=== PATIENT | female | born 1940 | race Caucasian/White ===

== ENCOUNTER 2024-04-13 15:13 | Outpatient (POV) | payer MEDICARE, OTHER, SELFPAY ==
--- OUTSIDE RECORDS SUMMARY | 2024-04-13 15:16 | XMS_ITS | Continuity of Care Document ---
Author Name Unknown Address [address], [place] [id number] Organization [facility] Phone Care Team Providers Care Taker Off Braker Machine Name Role Phone MENDOZA COMBS Primary Attending MENDOZA COMBS Admitting KARTHIK HANSEN Primary Care MENDOZA COMBS Unavailable ALLERGIES AND ADVERSE REACTIONS ALLERGIES AND ADVERSE REACTIONS Code System Allergy Substance Adverse Reaction Date Reaction (Severity) Comment Status Reported By Updated By [id number] RXNorm Penicillin Adverse reaction to substance na active [id number] on March 28, 2022 3:49:[address] [facility] FAMILY HISTORY RELATION: Father Status: Cause of : Small cell carcinoma of lung Age at : 73 SNOMED-CT Diagnosis Age At Onset [id number] Small cell carcinoma of lung RELATION: Mother Status: Cause of : Alzheimer's disease Age at : 80 SNOMED-CT Diagnosis Age At Onset [id number] Alzheimer's disease RELATION: Brother Status: Cause of : Meningitis Age at : 60's SNOMED-CT Diagnosis Age At Onset Information not available RELATION: Brother Status: Cause of : Irregular heart rate Age at : 80's SNOMED-CT Diagnosis Age At Onset Information not available RESULTS Patient: ANMOL Bonner Date of : 1940 LABORATORY RESULTS ORDER 200: CALCIUM TOTAL (LO INC: [id number]) ORDER DATE: January 28, 2024 6:44:00 PM [place] Specimen Source: Serum/Plasm a Specimen Type: Acellular blo od (serum or plasma) specimen PERFORMING LAB: [facility] [address] [facility] [id number] Result Comment: Final Result Date: January 28, 2024 7:19:00 PM UT (TECH: HC) LOINC TEST FLAG [place] [id number] Calcium [Mass/volume] in Serum or Plasma N 9.2 mg/dL 8.5 mg/dL - 10.1 mg/dL January 28, 2024 7:19:[address] [facility] (TECH: HC) LABORATORY NARRATIVE RESULTS Information is not available RADIOLOGY RESULTS Information is not available PATHOLOGY NARRATIVE RESULTS Information is not available MICROBIOLOGY RESULTS No Micro Labs/Results Exist for Patient BLOOD ADMIN RESULTS Information is not available MEDICATIONS HOME MEDICATIONS Status RXNORM NDC Medication Dose Route Frequency Dates Comments Reported By Updated By Drug Treatment Unknown DISCHARGE MEDICATIONS Status RXNORM NDC Medication Dose Route Frequency Dates Comments Physician Updated By No Discharge Medication Info rmation Available INPATIENT MEDICATIONS Status RXNORM NDC Medication Dose Route Frequency Rat e Quantity Dates Comments Physician Updated By No Inpatient Medication Info rmation Available SOCIAL HISTORY SOCIAL HISTORY SNOMED-CT Social History Element Description Effective Dates Offered Cessation Comment UpdatedBy [id number] Historical Tobacco smoking status Never Smoked Not Applicable [id number] on March 28, 2022 2:35:[address] [facility] [id number] Historical Tobacco smoking status Former Smoker End: August 19, 1980 4:00:[address] [facility] No Quit 50 years ago [id number] on August 19, 2018 2:23:[address] [facility] SOCIAL HISTORY - Gender Sex: Female SOCIAL HISTORY - Status : status i nformation is not available Intention in Next Year: intention information is not available SOCIAL HISTORY - Sexual Behavior Sexual Orientation Gender Identity SNOMED-CT Description SNO MED -CT Description Activity Level No of Partners Partner Type UpdatedBy Information is not available HEALTH CONCERNS Problems Concern Status Health Concern problem infor mation not available. Smoking Status Status Years Used Consumed packs p er day Health Concern smoking histo ry information not available. Family History Concern Status Health Concern family histor y information not available. ENCOUNTERS ENCOUNTER INFORMATION Reason for Visit M81.0 Admission January 28, 2024 6:30:[address] [address] Discharge January 28, 2024 6:30:[address] [facility] DI SCHARGED TO HOME OR SELF CARE ENCOUNTER DIAGNOSES Notes information is not mirta ilable. Code System Diagnosis Onset Date Diagnosis information is not available. 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 January 28, 2024 6:30:00 PM [place] [id number] on January 28, 2024 6:31:[address] [facility] LAURYN Kamara APRN Attending normal January 28, 2024 4:00:[address] [facility] January 28, 2024 6:30:00 PM UT [id number] on January 28, 2024 6:31:[address] [facility] LAURYN Kamara APRN Admitting normal January 28, 2024 4:00:[address] [facility] January 28, 2024 6:30:00 PM [place] [id number] on January 28, 2024 6:31:[address] [facility] JADE ANGELES MD PHY PCP normal January 28, 2024 4:00:[address] [facility] January 28, 2024 6:30:00 PM UT [id number] on January 28, 2024 6:31:[address] [facility]
--- OUTSIDE RECORDS SUMMARY | 2024-04-13 15:16 | XMS_ITS | Continuity of Care Document ---
Author Name Unknown Address [address] [place] [id number] Organization [facility] Phone Care Team Providers Care Assembler 1St Shift Name Role Phone JALIL FROST Unavailable JALIL FROST Admitting KARTHIK HANSEN Primary Care JALIL FROST Primary Attending ALLERGIES AND ADVERSE REACTIONS ALLERGIES AND ADVERSE REACTIONS Code System Allergy Substance Adverse Reaction Date Reaction (Severity) Comment Status Reported By Updated By [id number] RXNorm Penicillin Adverse reaction to substance na active [id number] on March 28, 2022 3:49:36 AM [facility] FAMILY HISTORY RELATION: Father Status: Cause of : Small cell carcinoma of lung Age at : 73 SNOMED-CT Diagnosis Age At Onset [id number] Small cell carcinoma of lung RELATION: Mother Status: Cause of : Alzheimer's disease Age at : 80 SNOMED-CT Diagnosis Age At Onset [id number] Alzheimer's disease RELATION: Brother Status: Cause of : Meningitis Age at : 60's SNOMED-CT Diagnosis Age At Onset Information not available RELATION: Brother Status: Cause of : Irregular heart rate Age at : 80's SNOMED-CT Diagnosis Age At Onset Information not available RESULTS Patient: ANMOL Bonner Date of : 1940 LABORATORY RESULTS ORDER 200: VITAMIN D3 25-OH (LOINC: 1989-3) ORDER DATE: November 27, 2023 7:37:00 PM [facility] Specimen Source: Serum/Plasm a PERFORMING LAB: [address] [id number] Result Comment: November 28, 2023 3:10:00 PM [facility] Vitamin D deficiency has been defined by the [place] of Result Comment: November 28, 2023 3:10:00 PM [facility] Medicine and an Endocrine Society practice guideline as a Result Comment: November 28, 2023 3:10:00 PM UTC level of serum 25-OH vitamin D less than 20 ng/mL (1,2). Result Comment: November 28, 2023 3:10:00 PM UTC The Endocrine Society went on to further define vitamin D Result Comment: November 28, 2023 3:10:00 PM UTC insufficiency as a level between 21 and 29 ng/mL (2). Result Comment: November 28, 2023 3:10:00 PM UTC 1. IOM ([place] of Medicine). 2010. Dietary reference Result Comment: November 28, 2023 3:10:00 PM UTC intakes for calcium and D. [facility]: The Result Comment: November 28, 2023 3:10:00 PM UTC [employer]. Result Comment: November 28, 2023 3:10:00 PM UTC 2. Yumiko EMERY, Rangel SU, David MADDOX, et al. Result Comment: November 28, 2023 3:10:00 PM UTC Evaluation, treatment, and prevention of vitamin D Result Comment: November 28, 2023 3:10:00 PM UTC deficiency: an Endocrine Society clinical practice Result Comment: November 28, 2023 3:10:00 PM UTC guideline. JCEM. 2010; 96):1911-30. Result Comment: November 28, 2023 3:10:00 PM UTC Performed at: [facility] Result Comment: November 28, 2023 3:10:00 PM UTC [address], [place] [id number] Result Comment: November 28, 2023 3:10:00 PM UTC Underground Repairer: Eduin Flores PhD, Phone: [phone] Result Comment: November 28, 2023 3:10:00 PM UTC Final Result Date: November 28, 2023 7:37:00 PM UTC (TECH: LAB) LOINC TEST FLAG RESULT REFERENCE RANGE UPDA BRAYAN BY 1988- Calcidiol [Mass/volume] in Serum or Plasma N 58.3 ng/mL 30.0 ng/mL - 100.0 ng/mL November 28, 2023 7:37:00 PM UTC (TECH: LAB) LABORATORY NARRATIVE RESULTS Information is not available RADIOLOGY RESULTS Information is not available PATHOLOGY NARRATIVE RESULTS Information is not available MICROBIOLOGY RESULTS No Micro Labs/Results Exist for Patient BLOOD ADMIN RESULTS Information is not available MEDICATIONS HOME MEDICATIONS Status RXNORM Medication Dose Route Frequency Dates Comments R eported By Updated By Drug Treatment Unknown DISCHARGE MEDICATIONS Status RXNORM Medication Dose Route Frequency Dates Comments Physic bay Updated By No Discharge Medication Info rmation Available INPATIENT MEDICATIONS Status RXNORM Medication Dose Route Frequency Rate Quantity Dates Comments Physician Updated By No Inpatient Medication Info rmation Available SOCIAL HISTORY SOCIAL HISTORY SNOMED-CT Social History Element Description Effective Dates Offered Cessation Comment UpdatedBy [id number] Historical Tobacco smoking status Never Smoked Not Applicable [id number] on March 28, 2022 2:35:51 PM [facility] [id number] Historical Tobacco smoking status Former Smoker End: August 19, 1980 4:00:00 AM [facility] No Quit 50 years ago [id number] on August 19, 2018 2:23:48 PM [facility] SOCIAL HISTORY - Gender Sex: Female SOCIAL HISTORY - Sexual Behavior Sexual Orientation [...] available. ENCOUNTERS ENCOUNTER INFORMATION Reason for Visit M81.0, R53.83 Admission November 27, 2023 7:23:[address] [id number] Discharge November 27, 2023 7:23:00 PM [facility] DISCHARGED TO HOME OR SELF CARE ENCOUNTER DIAGNOSES Notes information is not mirta ilable. Code System Diagnosis Onset Date Diagnosis information is not available. 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 [id number] on November 30, 2023 3:30:48 PM [facility] R53.83 ICD10 OTHER FATIGUE [id number] on Nov 3:30:48 PM [facility] CARE TEAM Care Assembler 1St Shift Role JALIL FROST Referring JALIL FROST Admitting KARTHIK HANSEN Primary Care JALIL FROST Primary Attending CARE TEAM CARE financial planning assistant Role on Team Status Start Date End Date Update d By JADE ANGELES MD PHY PCP normal November 27, 2023 5:00:00 AM UT November 27, 2023 5:00:00 AM [place] [id number] on November 27, 2023 7:25:36 PM UTC MARGOT JIMENES Referring normal November 27 5:00:00 AM [facility] November 27, 2023 5:00:00 AM [facility] [id number] on November 27, 2023 7:25:36 PM UTC MARGOT JIMENES Attending normal November 27 5:00:00 AM [facility] November 27, 2023 5:00:00 AM [facility] [id number] on November 27, 2023 7:25:36 PM UT MARGOT JIMENES Admitting normal November 27 5:00:00 AM [facility] November 27, 2023 5:00:00 AM [facility] [id number] on November 27, 2023 7:25:36 PM [facility]
--- OUTSIDE RECORDS SUMMARY | 2024-04-13 15:16 | XMS_ITS | Continuity of Care Document ---
Author Name Unknown Organization [facility] Address [address] [place] [id number] Phone Care Team Providers Care Slitter And Rewinder Name Role Phone Namrata Moreira MD Unavailable Unavailable Allergies, Adverse Reactions, Alerts Substance Reaction Status Criticality ZOLPIDEM TARTRATE Active No Informa tion Penicillins Active No Information Medications Medication Instructions Dosage Effective Dates (start - stop) Status Comments Prolia 60 mg/mL subcutaneous syringe inject 1 milliliter by subcutaneous route every 6 months in the upper arm, upper thigh or abdomen 60 MG - Active Dx= M81.0 hydroxychloroquine 200 mg tablet Take one tablet bid - Active gabapentin 100 mg capsule One Capsule twice daily, can increase to 1 capsule tid. - Active budesonide DR - ER 3 mg capsule,delayed,extende d release take 2 capsule by oral route every day in the morning for up to 8 weeks 6 MG - Active tamsulosin 0.4 mg capsule take 1 capsule by oral route every day 1/2 hour following the same meal each day 0.4 MG - Active amlodipine 10 mg tablet take 1 tablet by oral route every day 10 MG - Active ZOLOFT (unknown strength) take 1 tablet by oral route every day Not Available - Active Eliquis 2.5 mg tablet take 1 tablet by oral route 2 times every day 2.5 MG - Active VITAMIN D3 (unknown strength) weekly Not Available - Active hydrocodone 10 mg-acetaminophen 325 mg tablet take 1 tablet by oral route every 4 - 6 hours as needed for pain 1.00 tablet - Active hydroxyzine HCl 50 mg tablet take 1 tablet by oral route every day 50 MG - Active Fish Oil 1,000 mg (120 mg-180 mg) capsule Takes qd - Active cyanocobalamin (vit B-12) 1,000 mcg/mL injection solution inject 1 milliliter by intramuscular route every month 1000 MCG - Active omeprazole 40 mg capsule,delayed release take 1 capsule by oral route every day before a meal 40 MG - Active losartan 50 mg tablet take 1 tablet by oral route every day 50 MG - Active alprazolam 0.5 mg tablet take 1 tablet once a day - Active temazepam 30 mg capsule take 1 capsule once a day - Active sotalol 80 mg tablet take 1 tablet once a day - Active glimepiride 2 mg tablet take 1 tablet by oral route every day 2 MG - Active fluticasone 50 mcg/actuation nasal spray,suspension inhale 1 spray by intranasal route every day in each nostril 50 MCG - Active Procedures Procedure Date DEXA Bone Density Study 1 + Sites Office Visit Level IV Injection,denosumab,1mg Therapeutic Prophylactic/Dx Injection Rivera Injection,denosumab,1mg Therapeutic Prophylactic/Dx Injection Rivera Office Visit Level II Injection,denosumab,1mg Therapeutic Prophylactic/Dx Injection Rivera Office Visit Level II Injection,denosumab,1mg Therapeutic Prophylactic/Dx Injection Rivera Office Visit Level IV DEXA Bone Density Study 1 + Sites Office Visit Level III Injection,denosumab,1mg Therapeutic Prophylactic/Dx Injection Rivera Brief Tech Communication Injection,denosumab,1mg Therapeutic Prophylactic/Dx Injection Rivera Office Visit Level IV Office Visit Level IV DEXA Bone Density Study 1 + Sites Office Visit Level IV Office Visit Level IV Office Visit Level IV Office Visit Level IV Advance Directives Directive Yes / No Effective Date File Name No Information Encounters Encounter Description Practice Location Reason(s) For Visit Diagnoses Date Provider Providers Copied on Encounter [facility] [address] [place] [address], [id number], tel:[phone] [facility] No Information 4 Harish Ott. [address] [place] [address], [id number]. tel:[phone] [facility] [address] [place] [address], [id number], [place] tel:[phone] [facility] No Information 3 Harish Ott. [address] [place] [address], [id number]. tel:[phone] Referring Provider: MD Kailey Leal, [address] [place] [address], [facility]. tel:[phone] Office Visit Level IV [facility] [address] [place] [address], [id number], [place] tel:[phone] [facility] Rheumatoid Arthritis (chief complaint) RAOsteoporos isRenal insufficienc yPain ManagementHi gh Risk Medication UseBody mass index (BMI) 28.0-28.9, adult Oct- 3 Jake Carrasco. [address] [place] [address], [place], [place], [id number], [place]. tel:[phone] Specialist: Alphonso Valadez, [address], [place], [address]. tel:[phone] ist: Sal Kwon, [address] [facility], [place], [address]. tel:[phone] ist: Solsi To, [address], [address]. tel:[phone] ist: Anthony Simon, [address], [place], [address]. tel:[phone] ng Provider: MD Kailey Leal, [facility] [place], [address]. tel:[phone] [facility] [address] [place] [address], [id number], tel:[phone] [facility] Age-related osteoporosis without current pathological fracture 3 Harish Ott. [address], [id number]. tel:[phone] Referring Provider: MD Kailey Leal, [facility] [place], [address]. tel:[phone] [facility] [address] [place] [address], [id number], tel:[phone] [facility] Age-related osteoporosis without current pathological fracture 2 Harish Ott. [address], [id number]. tel:[phone] Referring Provider: MD Kailey Leal, [facility] [place], [address]. tel:[phone] Office Visit Level II [facility] [address] [place] [address], [id number], [place] tel:[phone] [facility] Rheumatoid Arthritis (chief complaint) RALow back painRenal insufficienc yOsteoporosi Umair ManagementBo dy mass index (BMI) 29.0-29.9, adultHigh Risk Medication Use 2 Harish Ott. [address], [address], [id number]. tel:[phone] Referring Provider: MD Kailey Leal, [facility] [place], [address]. tel:[phone] [facility] [address] [place] [address], [id number], [place] tel:[phone] [facility] Age-related osteoporosis without current pathological fracture 1 Harish Ott. [address], [id number]. tel:[phone] Referring Provider: MD Kailey Leal, [facility] [place], [address]. tel:[phone] Office Visit Level II [facility] [address] [place] [address], [id number], [place] tel:[phone] [facility] Rheumatoid Arthritis (chief complaint) RALow back painOsteopor osisRenal insufficienc yPain ManagementBo dy mass index (BMI) 29.0-29.9, adultHigh Risk Medication Use 1 Jake Carrasco. [address] [place] [address], [id number], [place]. tel:[phone] Referring Provider: MD Kailey Leal, [facility] [place], [address]. tel:[phone] [facility] [address] [place] [address], [id number], [place] tel:[phone] [facility] Age-related osteoporosis without current pathological fracture 1 Harish Ott. [address], [id number]. tel:[phone] Referring Provider: MD Kailey Leal, [facility] [place], [address]. tel:[phone] Office Visit Level IV [facility] [address] [place] [address], [id number], [place] tel:[phone] [facility] Rheumatoid Arthritis (chief complaint) RALow back painOsteopor osisRenal insufficienc yPain ManagementBo dy mass index (BMI) 29.0-29.9, adultHigh Risk Medication Use 1 Harish Ott. [address], [address], [id number]. tel:[phone] Referring Provider: MD Kailey Leal, [facility] [place], [address]. tel:[phone] Office Visit Level III [facility] [address] [place] [address], [id number], tel:[phone] [facility]. Rheumatoid Arthritis (chief complaint) RALow back painOsteopor osisRenal insufficienc yPain ManagementBo dy mass index (BMI) 29.0-29.9, adultHigh Risk Medication Use 1 Harish Ott. [address] [employer], [address], [id number]. tel:[phone] Referring Provider: MD Kailey Leal, [facility] [place], [address]. tel:[phone] [facility], [address] [place] [address], [id number], [place] tel:[phone] [facility]. Rheumatoid Arthritis (chief complaint) Pain ManagementAN TICOAGULATED ON COUMADINRALo w back painOsteopor osisRenal insufficienc yBody mass index (BMI) 29.0-29.9, adultHigh Risk Medication Use 0 Harish Ott. [address], [address], [id number]. tel:[phone] Referring Provider: MD Kailey Leal, [facility] [place], [address]. tel:[phone] [facility] [address] [place] [address], [id number], [place] tel:[phone] [facility] Age-related osteoporosis w/o current pathological fracture 0 Harish Ott. [address], [id number]. tel:[phone] Referring Provider: MD Kailey Leal, [facility] [place], [address]. tel:[phone] [facility] [address] [place] [address], [id number], [place] tel:[phone] [facility] Rheumatoid Arthritis (chief complaint) RALow back painOsteopor osisRenal insufficienc yBody mass index (BMI) 29.0-29.9, adultHigh Risk Medication UsePain ManagementAN TICOAGULATED ON COUMADIN 0 Harish Ott. [address], [place] [address], [place], [place], [id number]. tel:[phone] Referring Provider: MD Kailey Leal, [address] [place], [address]. tel:[phone] [facility] [address] [place] [address], [id number], [place] tel:[phone] [facility] No Information 0 Zenaida Russell. [address], [id number]. tel:[phone] [facility] [address] [place] [address], [id number], [place] tel:[phone] [facility] Age-related osteoporosis w/o current pathological fracture 201 9 Leeann Wyatt. [address], [place] [address], [place], [address]. tel:[phone] Referring Provider: MD Kailey Leal, [address] [place], [address]. tel:[phone] Office Visit Level IV [facility] [address] [address], [place], [place], [id number], [place] tel:[phone] [facility]. Rheumatoid Arthritis (chief complaint) RALow back painOsteopor osisRenal insufficienc yHigh Risk Medication UseBody mass index (BMI) 29.0-29.9, adult Aug- 9 Harish Ott. [address], [address], [place], [place], [id number]. tel:[phone] Specialist: Gabriela Rogers [address], [place], [address]. tel:[phone] ist: Sal Kwon, [address] [place], [address]. tel:[phone] ist: Solis To, [address], [address]. tel:[phone] ist: Anthony Simon, [address], [place], [address]. tel:[phone] Provider: MD Kailey Leal, [address] [place], [address]. tel:[phone] Office Visit Level IV [facility] [address] [address], [place], [place], [id number], [place] tel:[phone] [facility]. Rheumatoid Arthritis (chief complaint) RALow back painRenal insufficienc yLong term (current) use of systemic steroidsHigh Risk Medication UseBody mass index (BMI) 32.0-32.9, adultLack of energyOsteop orosis Jan- 9 Harish Ott. [address], [address], [place], [place], [id number]. tel:[phone] Specialist: Gabriela Rogers [address], [place], [address]. tel:[phone] ist: Sal Kwon, [address], [place], [address]. tel:[phone] ist: Solis Portillox, [address], [address]. tel:[phone] ist: Gabriela Berg [address], [place], [address]. tel:[phone] ng Provider: MD Kailey Leal, [facility] [place], [address]. tel:[phone] Office Visit Level IV [facility], [address] [place] [address], [place], [id number], tel:[phone] [facility] Rheumatoid Arthritis (chief complaint) RALow back painOsteopen iaRenal insufficienc yBody mass index (BMI) 27.0-27.9, adultLong term (current) use of systemic steroidsHigh Risk Medication Use Oct-0 1-201 8 Harish Ott. [address] [facility], [place], [place], [id number]. tel:[phone] Specialist: Gabriela Rogers [address], [place], [address]. tel:[phone] ist: Sal Alfredoadalid, [address] [facility], [place], [address]. tel:[phone] ist: Solis Portillox, [address], [address]. tel:[phone] ist: Gabriela Berg [address], [place], [address]. tel:[phone] ng Provider: MD Kailey Leal, [address] [place], [address]. tel:[phone] Office Visit Level IV [facility]., [address] [address], [place], [place], [id number], [place] tel:[phone] [facility]. Rheumatoid Arthritis (chief complaint) RALow back painOsteopen iaRenal insufficienc yHigh Risk Medication UseBody mass index (BMI) 27.0-27.9, adultLong term (current) use of systemic steroids 8 Harish Ott. [address], [address], [place], [place], [id number]. tel:[phone] Specialist: Gabriela Rogers [address], [place], [address]. tel:[phone] ist: Sal Kwon, [address] [place], [address]. tel:[phone] ist: Solis To, [address], [address]. tel:[phone] ist: Anthony Simon, [address], [place], [address]. tel:[phone] ng Provider: MD Kailey Leal, [facility] [place], [address]. tel:[phone] Office Visit Level IV [facility], [address] [place] [address], [place], [place], [id number], [place] tel:[phone] [facility]. Rheumatoid Arthritis (chief complaint) RAOsteopenia Renal insufficienc yHigh Risk Medication UseLow back pain 7 Harish Ott. [address], [address], [place], [place], [id number]. tel:[phone] Specialist: Gabriela Rogers [address], [place], [address]. tel:[phone] melida Provider: MD Kailey Leal, [address] [place], [address]. tel:[phone] Office Visit Level IV [facility], [address] [facility] [address], [place], [place], [id number], tel:[phone] [facility] Lack of energyCrypto coccosisBron chiectasisIn somniaPacema kerNeck PainThrombos isDiabetic ComaA fibEssential (hemorrhagic ) thrombocythe Trinity/O: CVA (CEREBROVASC ULAR ACCIDENT)BRIAN levated Liver Function TestsDepress ionIrritable bowel syndromeOste openiaPain in left hipLBP Radiating to Right LegRARenal insufficienc y 7 Harish Ott. 330 [facility], [address], [place], [place], [id number]. tel:[phone] Referring Provider: MD Kailey Leal, [address] [facility], [place], [address]. tel:[phone] Family History Family Member Type Diagnosis Age At Onset Brother Problem (finding) alzheimer's disease Payers Payer name Insurance type Covered libertarian ID Authoriza tion(s) Medicare [id number] MB [id number] [employer] [id number] CI [id number] Social History Type Description Quantity Date Captured Comments Sex Female Smoking Status No Information Chief Complaint And Reason For Visit No Information Reason For Referral Reason For Referral No Information Plan Of Treatment Date Type Action Status Goal Lifestyle educat ion regarding diet completed Goal Lifestyle educat ion regarding diet completed Goal Lifestyle educat ion regarding diet completed Goal Dietary manageme nt education, guidance, and counseling completed Future Order: Radiology Order Harvey ne density study (by DEXA); axial skeleton (e.g., hips, pelvis, spine) ([id number]), Ordered on: Ordered Future Order: Lab Order CBC With Differential/Platelet ([id number]), Ordered on: Ordered Future Order: Lab Order Comp. Me tabolic Panel (14) ([id number]), Ordered on: Ordered Future Order: Lab Order Vitamin D, 25-Hydroxy ([id number]), Ordered on: Ordered Future Order: Lab Order CBC With Differential/Platelet ([id number]), Ordered on: Ordered Future Order: Lab Order Comp. Me tabolic Panel (14) ([id number]), Ordered on: Ordered Future Order: Lab Order CBC With Differential/Platelet ([id number]), Ordered on: Ordered Future Order: Lab Order Comp. Me tabolic Panel (14) ([id number]), Ordered on: Ordered Future Order: Lab Order Vitamin D, 25-Hydroxy ([id number]), Ordered on: Ordered Future Order: Lab Order CBC With Differential/Platelet ([id number]), Ordered on: Ordered Future Order: Lab Order Comp. Me tabolic Panel (14) ([id number]), Ordered on: Ordered Future Order: Radiology Order Harvey ne density study (by DEXA); axial skeleton (e.g., hips, pelvis, spine) (08713), Ordered on: Ordered Future Order: Lab Order CBC With Differential/Platelet ([id number]), Ordered on: Ordered Future Order: Lab Order Comp. Me tabolic Panel (14) ([id number]), Ordered on: Ordered Future Order: Lab Order CBC With Differential/Platelet ([id number]), Ordered on: Ordered Future Order: Lab Order Comp. Me tabolic Panel (14) ([id number]), Ordered on: Ordered Future Order: Lab Order Prothrom bin Time (PT) ([id number]), Ordered on: Ordered Future Order: Lab Order CBC With Differential/Platelet ([id number]), Ordered on: Ordered Future Order: Lab Order Comp. Me tabolic Panel (14) ([id number]), Ordered on: Ordered Future Order: Lab Order CBC With Differential/Platelet ([id number]), Ordered on: Ordered Future Order: Lab Order Comp. Me tabolic Panel (14) ([id number]), Ordered on: Ordered Future Order: Lab Order Vitamin D, 25-Hydroxy ([id number]), Ordered on: Ordered Future Order: Lab Order Vitamin B12 and Folate ([id number]), Ordered on: Ordered Future Order: Lab Order TSH (004 259), Ordered on: Ordered Future Order: Lab Order Cortisol - AM ([id number]), Ordered on: Ordered Future Order: Lab Order N-Telope ptide, Serum ([id number]), Ordered on: Ordered Future Order: Lab Order Osteocal elder, Serum ([id number]), Ordered on: Ordered Future Order: Lab Order PTH, Int act ([id number]), Ordered on: Ordered Future Order: Lab Order Protein Electro.,S ([id number]), Ordered on: Ordered Future Order: Radiology Order Harvey ne density study (by DEXA); axial skeleton (e.g., hips, pelvis, spine) (76082), Ordered on: Ordered Future Order: Lab Order CBC With Differential/Platelet ([id number]), Ordered on: Ordered Future Order: Lab Order Comp. Me tabolic Panel (14) ([id number]), Ordered on: Ordered Future Order: Lab Order CBC With Differential/Platelet ([id number]), Ordered on: Ordered Future Order: Lab Order Comp. Me tabolic Panel (14) ([id number]), Ordered on: Ordered Future Order: Lab Order CBC With Differential/Platelet ([id number]), Ordered on: Ordered Future Order: Lab Order Comp. Me tabolic Panel (14) ([id number]), Ordered on: Ordered History Of Present Illness Encounter Date Complaint History Of Prese nt Illness Rheumatoid Arthritis Pain scale: 2/10. Rheumatoid Arthritis Pain scale: 2/10. Rheumatoid Arthritis Pain scale: 2/10. Rheumatoid Arthritis Pain scale: 2/10. Rheumatoid Arthritis Pain scale: 2/10. Rheumatoid Arthritis Pain scale: 2/10. Rheumatoid Arthritis Pain scale: 2/10. Rheumatoid Arthritis Reference i nterval of symptoms: since last visit. The severity of the problem is mild. Pain scale: 8/10. The symptoms are intermittent. The problem has not changed. The primary symptoms reported include: pain, stiffness and functional limitation. The following symptoms are not reported: swelling and progression of deformity. The patient's assessment of treatment is: helping greatly. The patient is not experiencing side effects. The locations affected since last visit are low back and bilateral hand. Associated symptoms include fatigue, inactivity gelling and joint swelling. Pertinent negatives include fever, AM stiffness, change in vision, skin lesion(s), chest pain, changing cough, edema and abdominal pain. Additional information: Right third finger triggers at times- Left has been repaired. She still has some CTS sx in the left hand despite surgery. Her back is her b=most bothersome problem. She has difficulty walking secondary to that. Rheumatoid Arthritis Reference i nterval of symptoms: since last visit. The severity of the problem is mild. Pain scale: 2/10. The symptoms are intermittent. The problem has not changed. The primary symptoms reported include: pain, stiffness and functional limitation. The following symptoms are not reported: swelling and progression of deformity. The locations affected since last visit are low back, bilateral hand and bilateral ankle. Associated symptoms include AM stiffness, inactivity gelling, changing cough and joint swelling. Pertinent negatives include fever, fatigue, change in vision, skin lesion(s), chest pain, edema and abdominal pain. Additional information: Right third finger triggers at times- Left has been repaired. Difficulty walking secondary to back. Her CTS sx bother her left hand. Most of her sx come from her back. Rheumatoid Arthritis Reference i nterval of symptoms: since last visit. The severity of the problem is mild. Pain scale: 2/10. The symptoms are intermittent. The problem has not changed. The primary symptoms reported include: functional limitation. The following symptoms are not reported: pain, stiffness, swelling and progression of deformity. The locations affected since last visit are low back. Associated symptoms include inactivity gelling. Pertinent negatives include fever, fatigue, AM stiffness, change in vision, skin lesion(s), chest pain, changing cough, edema, joint swelling and abdominal pain. Additional information: Right third finger triggers at times- Left has been repaired. Difficulty walking secondary to back. Most of her pain and sx comes from her back. Rheumatoid Arthritis Reference i nterval of symptoms: since last visit. The severity of the problem is mild. Pain scale: 2/10. The symptoms are intermittent. The problem has not changed. The primary symptoms reported include: stiffness and functional limitation. The following symptoms are not reported: pain, swelling and progression of deformity. The locations affected since last visit are low back. Associated symptoms include fatigue and inactivity gelling. Pertinent negatives include fever, AM stiffness, change in vision, skin lesion(s), chest pain, changing cough, edema, joint swelling and abdominal pain. Additional information: Occ has trigger fingers but most of her pain seems to be coming from her back. Function limitations secondary to her back pain. Rheumatoid Arthritis Reference i nterval of symptoms: since last visit. The severity of the problem is mild. Pain scale: 9/10. The symptoms are constant. The problem has worsened. The primary symptoms reported include: pain, stiffness and functional limitation. The following symptoms are not reported: swelling and progression of deformity. The locations affected since last visit are low back, left shoulder, left elbow and left hand. Associated symptoms include fatigue, AM stiffness (24 Hours), inactivity gelling and changing cough. Pertinent negatives include fever, change in vision, skin lesion(s), chest pain, edema, joint swelling and abdominal pain. Additional information: She Frequently drops objects and her left hand is numb at times; The bulk of her pain is coming from her lower back. She no longer has radicular pain after Dr. To injected her. Functional Status Date Functional Assessmen t No Information Instructions Date Instruction Additional Infor andres Continue Prolia-, la st dose 10/22- Restart. Continue calcium + DWeight bearing exercise if possible.Dexa due 03/24, but she has not been seen since 06/2022. We will get this ordered. Related to Osteoporosis Eye check Q6-12 mos with Annual OCT- she reports having this done recently. Will request.Cbc,Cmp - no labs since 2Recommend covid-19 vaccine and discussed Related to High Risk Medication Use Patient unsure when nephrology appt is. Looks as if her renal function has been stable. Related to Renal insufficiency Needs to get back to pain treatment for injectionsMaribell is now taking [place] 10mg/325mg, she cannot remember if this is from PCP. Related to Pain Management Currently on 1 plaqu enil per day .Continue compression gloves. Related to RA Lifestyle education regarding di et Related to Body mass index [BMI] 28.0-28.9, adult Patient unsure when nephrology appt is. Looks as if her renal function has been stable. Related to Renal insufficiency Eye check Q6-12 mos with Annual OCT- Overdue. Needs appt.Cbc,Cmp 03/23 Glucose 178Recommend covid-19 vaccine and discussed Related to High Risk Medication Use Currently on 1 plaqu enil per day .Continue compression gloves. Related to RA Continue Gabapentin. Continue [place] 10mg/325mg Related to Low back pain Needs to get back to pain treatment for injectionsMaribell is now taking [place] 10mg/325mg, she cannot remember if this is from Dr. To or PCP. Related to Pain Management Continue Prolia-, la st dose 10/22- Restart. Continue calcium + DWeight bearing exercise if possible.Dexa due 03/24 Related to Osteoporosis Continue to monitorS he is anemic.08/2021: Hct 33.3/HGB 10.0 Related to Renal insufficiency Needs to get back to pain treatment for injectionsMaribell is now taking [place] 10mg/325mg, she cannot remember if this is from Dr. To or PCP. Related to Pain Management Eye check Q6-12 mos with Annual OCT- Overdue. Needs appt.Cbc,Cmp 07/2020 HGB 10.2, HCT 33.7; MCV low at 72.9 Recommend covid-19 vaccine and discussed Related to High Risk Medication Use Currently on 1 plaqu enil per day .Continue compression gloves.She is planning on completing Covid-19 vaccine series soon. Related to RA Continue Gabapentin. Continue [place] 10mg/325mg Related to Low back pain Continue Prolia-, la st dose 04/10/2021.She would like to have next Prolia injection in [place] office.Continue calcium + DWeight bearing exercise if possible.Dexa due 03/24 Related to Osteoporosis Currently on 1 plaqu enil per day .Continue compression gloves. Related to RA Continue Gabapentin. As per Dr. To. Will try to get pt appt with him . Related to Low back pain Eye check Q6-12 mos with Annual OCT- Overdue. Needs appt.Cbc,Cmp 07/2020 HGB 10.2, HCT 33.7; MCV low at 72.9 Recommend covid-19 vaccine and discussed Related to High Risk Medication Use Continue Prolia- res tart.Continue calcium + DWeight bearing exercise if possible.Dexa due 03/24 Related to Osteoporosis Needs to get back to pain treatment for injections Related to Pain Management Currently on 1 plaqu enil per day .Continue compression gloves. Related to RA Continue Gabapentin.As per Dr. Ragini beal. Related to Low back pain Continue Prolia.Cont inue calcium + DWeight bearing exercise if possible.Dexa due on RTC. Related to Osteoporosis Eye check Q6-12 mos with Annual OCT- Overdue.Cbc,[facility] 07/2020 HGB 10.2, HCT 33.7; MCV low at 72.9 Recommend covid-19 vaccine and discussed Related to High Risk Medication Use Continue Prolia.Cont inue calcium + DWeight bearing exercise if possible.In her case she may be able to do chair aerobics or chair yoga but does not have smart phone or computer to access YouTube. Related to Osteoporosis Eye check Q6-12 mos with Annual OCT- Pending this year.Order for labs mailedCb,[facility] 11/20.COVID-19 safety precautions discussed. Other resources that are useful include [employer] website. Related to High Risk Medication Use Patient due to have INR checked and would like to do it with her routine labs so that she does not have to come out twice in view of pandemic. COVID-19 safety precautions discussed. Other resources that are useful include [employer] website.PT/INR. Related to ANTICOAGULATED ON COUMADIN Continue Gabapentin.As per Dr. Ragini beal. Related to Low back pain Currently on 1 plaqu enil per day .Continue compression gloves. Related to RA Currently on 1 plaqu enil per day .Continue compression gloves. Related to RA Continue Gabapentin.As per Dr. Ragini beal. Related to Low back pain Continue Prolia.Cont inue calcium + DWeight bearing exercise if possible.In her case she may be able to do chair aerobics or chair yoga but does not have smart phone or computer to access [employer]. Related to Osteoporosis Eye check Q6-12 mos with Annual OCT- Pending this year.Order for labs mailedCb,[facility] 11/20.COVID-19 safety precautions discussed. Other resources that are useful include [employer] website. Related to High Risk Medication Use Patient due to have INR checked and would like to do it with her routine labs so that she does not have to come out twice in view of pandemic. COVID-19 safety precautions discussed. Other resources that are useful include [employer] website.PT/INR. Related to ANTICOAGULATED ON COUMADIN In View of decreased Kidney function, Pacemaker and chronic lung disease requiring Oxygen as well as her Diabetes I do not think she is a candidate for surgery. I do think she is at high risk for Complications.Gabapentin 100mg bid helps some - will increase to three times per day but no further in view of kidney issues. Related to Low back pain Eye check Q6-12 mos with Annual OCT- Pending this year.Order for labs given today. Related to High Risk Medication Use She would be a maryuri date for prolia -Will PA.Contact Dr. Collins regarding D dose. Related to Osteoporosis Saw Nephrology who f elt she was stable for her age and Recommended she return in 2 years or sooner if she needed. Related to Renal insufficiency Currently on 1 plaqu enil per day .DC'd steroids on her own. Related to RA Lifestyle education regarding di et Related to Body mass index (BMI) 29.0-29.9, adult In View of decreased Kidney function, Pacemaker and chronic lung disease requiring Oxygen as well as her Diabetes I do not think she is a candidate for surgery. I do think she is at high risk for Complications. Related to Low back pain Glucose control w/pcp. 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 Related to High Risk Medication Use Currently on 1 plaqu enil per day .DC'd steroids on her own. Related to RA She would be a maryuri date for prolia - will discuss with renal - Brochure given.Osteoporosis lab workup.Dex reviewed with patient today. Related to Osteoporosis Refer to Nephrology. Related to Renal insufficiency Recheck B12, D and TSH. Related to Lack of energy Lifestyle education regarding di et Related to Body mass index (BMI) 32.0-32.9, adult Eye check Q6-12 mos with Annual OCT- UTD per patient although she does not know specific date - Annual per patient.Rec Daily Miralax + Stool Softener+ Prunes- If no relief F/u with pcp for bowel regimen.Cbc,Cmp 07/20 Related to High Risk Medication Use In View of decreased Kidney function,Pacemaker and chronic lung disease requiring Oxygen as well as her Diabetes I do not think she is a candidate for surgery. I do think she is at high risk for Complications.F/u with pcp regarding Blood Glucoses.Will sign pain contract and start her on Gabapentin. Related to Low back pain Continue Ca/D per re nal; recheck 2 yrs; walk if possible. Dexa on RTC. Related to Osteopenia Glucose control w/pcp. 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 Related to RA Glucose control w/pcp. Related t o terminal gauger (current) use of systemic steroids Patient discussed wi th pcp who felt she did not need renal F/u yet- As per pcp. Related to Renal insufficiency Eye check Q6-12 mos with Annual OCT- UTD - Annual per patient.Rec Daily Miralax + Stool Softener+ Prunes- If no relief F/u with pcp for bowel regimen. Related to High Risk Medication Use Currently on 1 plaqu enil per day - Continue but can increase to bid for flare. Related to RA In View of decreased Kidney function,Pacemaker and chronic lung disease requiring Oxygen as well as her Diabetes I do not think she is a candidate for surgery. I do think she is at high risk for Complications.F/u with pcp regarding Blood Glucoses. Related to Low back pain Continue Ca/D per re nal; recheck 2 yrs; walk if possible. Sched f/u dexa here Related to Osteopenia Dietary management e ducation, guidance, and counseling Related to Body mass index (BMI) 27.0-27.9, adult Eye check Q6-12 mos with Annual OCT.Restart %mg of prednisone per day. Related to High Risk Medication Use In View of decreased Kidney function,Pacemaker and chronic lung disease requiring Oxygen as well as her Diabetes I do not think she is a candidate for surgery. I do think she is at high risk for Complications. Related to Low back pain Continue Ca/D per re nal; recheck 2 yrs; walk if possible. 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 Related to Renal insufficiency Currently on 1 plaqu enil per day - Continue but can increase to bid for flare. Related to RA She is having more j oint pain and Stiffness. which she contributes to Severe back pain causing her to ache all over. No Synovitis. She is going to decrease her plaquenil to 1 per day because of $$$$ If her RA flares we will Restart Arava at 5mg QoD. Related to RA rec regular renal f/ u--will sched.; no nsaids! RECENTLY STABLE. Related to Renal insufficiency better after recent injxn; pain with flexion; CT r/o AVN was neg except--+ moderate djd; she had a small Non Specific Nodule on the left SubQ--discussed. Related to Pain in left hip saw Dr. Devlin, plan i s to see Dr Valadez. looking at [facility] Related to LBP Radiating to Right Leg off meds; u/s neg Related to Alina vated Liver Function Tests -?cymbalta etc.; def er to pcp; better today Related to Depression Align 1 daily Related to Irrit able bowel syndrome f/u 2013 = mild/stab le wrist; nl hip and spine but spine likely increased by djd. Continue Ca/D per renal; recheck 2 yrs; walk if possible. sched f/u dexa here Related to Osteopenia on coumadin--f/u gabriella richardson/[place] and Dr Simon Related to A fib c/o pain right side- -attributed to cva by pt. ? if low dose gabapentin 100 bid might help--defer to Dr To Related to H/O: CVA (CEREBROVASCULAR ACCIDENT) get d/c summary; Dr Aguilar Relat ed to Thrombosis TRY MM RELAXER PRN Related to Ne ck Pain Assessments Type Assessment Date No Information Patient Care Teams Name Effective Dates (start - stop) Status Members No Information
--- OUTSIDE RECORDS SUMMARY | 2024-04-13 15:16 | XMS_ITS | Continuity of Care Document ---
Author Name Unknown Address [address] [place], [place] [id number] Organization [facility] Phone Care Team Providers Care Shaping Machine Tender Name Role Phone MENDOZA COMBS Primary Attending MENDOZA COMBS Admitting KARTHIK HANSEN Primary Care MENDOZA COMBS Unavailable ALLERGIES AND ADVERSE REACTIONS ALLERGIES AND ADVERSE REACTIONS Code System Allergy Substance Adverse Reaction Date Reaction (Severity) Comment Status Reported By Updated By [id number] RXNorm Penicillin Adverse reaction to substance na active [id number] on March 28, 2022 3:49:36 AM [facility] FAMILY HISTORY RELATION: Father Status: Cause of : Small cell carcinoma of lung Age at : 73 SNOMED-CT Diagnosis Age At Onset [id number] Small cell carcinoma of lung RELATION: Mother Status: Cause of : Alzheimer's disease Age at : 80 SNOMED-CT Diagnosis Age At Onset [id number] Alzheimer's disease RELATION: Brother Status: Cause of : Meningitis Age at : 60's SNOMED-CT Diagnosis Age At Onset Information not available RELATION: Brother Status: Cause of : Irregular heart rate Age at : 80's SNOMED-CT Diagnosis Age At Onset Information not available RESULTS Patient: ANMOL Bonner Date of : 1940 LABORATORY RESULTS ORDER 200: CALCIUM TOTAL (LO INC: [id number]) ORDER DATE: January 28, 2024 6:44:00 PM [place] Specimen Source: Serum/Plasm a Specimen Type: Acellular blo od (serum or plasma) specimen PERFORMING LAB: [facility] [address] [facility] [id number] Result Comment: Final Result Date: January 28, 2024 7:19:00 PM [facility] (TECH: HC) LOINC TEST [place] [id number] Calcium [Mass/volume] in Serum or Plasma N 9.2 mg/dL 8.5 mg/dL - 10.1 mg/dL January 28, 2024 7:19:00 PM [facility] (TECH: HC) LABORATORY NARRATIVE RESULTS Information [...] Description Effective Dates Offered Cessation Comment UpdatedBy [id number] Historical Tobacco smoking status Never Smoked Not Applicable [id number] on March 28, 2022 2:35:51 PM [facility] [id number] Historical Tobacco smoking status Former Smoker End: August 19, 1980 4:00:00 AM [facility] No Quit 50 years ago [id number] on August 19, 2018 2:23:48 PM [facility] SOCIAL HISTORY - Gender Sex: Female [...] M81.0 Admission January 28, 2024 6:30:[address] [id number] Discharge January 28, 2024 6:30:00 PM [facility] DI SCHARGED TO HOME OR SELF CARE ENCOUNTER DIAGNOSES Notes information is not mirta ilable. Code System Diagnosis Onset Date Diagnosis information is not available. 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 [id number] on January 29, 2024 6:34:44 PM [facility] M81.0 ICD10 AGE-RELATED OSTE OPOROSIS WITHOUT CURRENT PATHOLOGICAL FRACTURE [id number] on January 29, 2024 6:34:44 PM [facility] CARE TEAM Care Shaping Machine Tender Role MENDOZA COMBS Primary Attending MENDOZA COMBS Admitting KARTHIK HANSEN Primary Care MENDOZA COMBS Referring CARE TEAM CARE member services representative Role on Team Status Start Date End Date Update d By LAURYN Kamara SAMPLE SELECTOR Referring normal January 28, 2024 4:00:00 AM [facility] January 28, 2024 4:00:00 AM [facility] [id number] on January 28, 2024 6:31:59 PM [facility] LAURYN Kamara APRN Attending normal January 28, 2024 4:00:00 AM [facility] January 28, 2024 4:00:00 AM [facility] [id number] on January 28, 2024 6:31:59 PM [facility] LAURYN Kamara APRN Admitting normal January 28, 2024 4:00:00 AM [facility] January 28, 2024 4:00:00 AM [place] [id number] on January 28, 2024 6:31:59 PM [facility] JADE ANGELES MD PHY PCP normal January 28, 2024 4:00:00 AM [facility] January 28, 2024 4:00:00 AM [place] [id number] on January 28, 2024 6:31:59 PM [facility]
--- OUTSIDE RECORDS SUMMARY | 2024-04-13 15:16 | XMS_ITS | Continuity of Care Document ---
Author Name Unknown Address [address] [facility] SAMIA MEYER [id number] Organization [facility] Phone Care Team Providers Care Information Assurance Name Role Phone JALIL FROST Unavailable JALIL FROST Admitting KARTHIK HANSEN Primary Care JALIL FROST Primary Attending ALLERGIES AND ADVERSE REACTIONS ALLERGIES AND ADVERSE REACTIONS Code System Allergy Substance Adverse Reaction Date Reaction (Severity) Comment Status Reported By Updated By [id number] RXNorm Penicillin Adverse reaction to substance na active [id number] on March 28, 2022 3:49:36 AM [facility] FAMILY HISTORY RELATION: Father Status: Cause of : Small cell carcinoma of lung Age at : 73 SNOMED-CT Diagnosis Age At Onset [id number] Small cell carcinoma of lung RELATION: Mother Status: Cause of : Alzheimer's disease Age at : 80 SNOMED-CT Diagnosis Age At Onset [id number] Alzheimer's disease RELATION: Brother Status: Cause of : Meningitis Age at : 60's SNOMED-CT Diagnosis Age At Onset Information not available RELATION: Brother Status: Cause of : Irregular heart rate Age at : 80's SNOMED-CT Diagnosis Age At Onset Information not available TREATMENT PLAN DISCHARGE MEDICATIONS Status RXNORM Medication Dose Route Frequency Dates Comments U pdated By Patient discharge medication information is not available. PATIENT OPEN ORDERS Code System Description Frequency Occurrences Priority Start Date Ordering Physician Updated By 1988- LOINC Calcidiol [Mass/volume ] in Serum or Plasma ONE TIME 0 Routine November 27, 2023 7:37:00 PM [facility] MARGOT JIMENES [id number] on November 27, 2023 7:37:00 PM [facility] SCHEDULED PROCEDURES Code System Description Status Scheduled Date Upd ated By Patient scheduled procedure information is not available. MEDICATIONS HOME MEDICATIONS Status RXNORM Medication Dose [...] Description Effective Dates Offered Cessation Comment UpdatedBy [id number] Historical Tobacco smoking status Never Smoked Not Applicable [id number] on March 28, 2022 2:35:51 PM [facility] [id number] Historical Tobacco smoking status Former Smoker End: August 19, 1980 4:00:00 AM [facility] No Quit 50 years ago [id number] on August 19, 2018 2:23:48 PM [facility] SOCIAL HISTORY - Gender Sex: Female [...] R53.83 Admission November 27, 2023 7:23:[address] [address] Discharge November 27, 2023 7:23:00 PM [facility] DISCHARGED TO HOME OR SELF CARE ENCOUNTER DIAGNOSES Notes information is not mirta ilable. Code System Diagnosis Onset Date Diagnosis information is not available. 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 [id number] on November 27, 2023 7:37:52 PM [facility] R53.83 ICD10 OTHER FATIGUE [id number] on Nov 7:37:52 PM [facility] CARE TEAM Care Information Assurance Role JALIL FROST Referring JALIL FROST Admitting KARTHIK HANSEN Primary Care JALIL FROST Primary Attending CARE TEAM CARE director of food and beverage services Role on Team Status Start Date End Date Update d By JADE ANGELES MD PHY PCP normal November 27, 2023 5:00:00 AM [facility] November 27, 2023 7:23:00 PM [facility] [id number] on November 27, 2023 7:25:36 PM [facility] MARGOT JIMENES Referring normal November 27 5:00:00 AM [facility] November 27, 2023 7:23:00 PM [facility] [id number] on November 27, 2023 7:25:36 PM [facility] MARGOT JIMENES Attending normal November 27 5:00:00 AM [facility] November 27, 2023 7:23:00 PM [facility] [id number] on November 27, 2023 7:25:36 PM [facility] MARGOT JIMENES Admitting normal November 27 5:00:00 AM [facility] November 27, 2023 7:23:00 PM [facility] [id number] on November 27, 2023 7:25:36 PM [facility]
[2024-04-13 16:11] VITALS: BP 110/46; PULSE 66; RESP 18; O2SAT 96; BMI 26.4
--- NOTE | 2024-04-13 16:47 | EXP.PAIN.OV ---
HPI Data of Consult Patient: new to practice Consult date: 04/13/24 Requesting Physician: Veronica Wheat APRN Primary Care Provider: Ahmet Mcclelland Consult Narrative Reason for consult: Low back pain, leg pain History of present illness: Ms. Blandon is a 83 year old female who presents today as a new patient. She is a referral from Dr. Mcclelland's office. Today she rates her pain a 10 out of 10. Patient states she has pain throughout her low back and into her bilateral lower extremities. She describes it as an aching, throbbing sensation with numbness and tingling. She states the pain does interfere with her ability to perform activities of daily living such as cooking and cleaning. Patient states this pain is going on for years unrelated to any new trauma or injury. Patient does state in the past she has gotten lumbar epidurals and other injections from our office with Dr. To. She states that these injections really did not help make her symptoms more manageable and felt overall more functional. Patient states that she would like to proceed back with these injections again. Patient does also states she has a history of sciatic issues that will occasionally flareup from time to time. Patient does state her pain is typically worse with increased activity or ambulation. She states she does get some relief when she rest or alters her positioning. Patient does states she has to sleep on her stomach and this will help sometimes with the pain. Patient has been to neurosurgery in the past and was told that she could do an 8-hour surgery but that it was very high risk and that she might not survive it. Patient did not want to proceed forward with this option. Patient does state it has been a few years since she has had updated imaging. Patient does state that she has a history of falls frequently however has never had any fractures related to these injuries. She does state that she is on Prolia for her osteoporosis and that she is trying to see about getting the injections here at [facility]. Patient is prescribed temazepam, Chelsea and gabapentin from an outside provider. Her Alexis has been reviewed and is appropriate. CC: Veronica Wheat APRN [facility] Disclaimer: The information contained in this section may have been updated after the patient was seen, as this information can be updated by other users. Medical History (Updated 04/13/24 @ 16:53 by Veronica Wheat APRN) CVA (cerebral vascular accident) Anxiety Diabetes GERD (gastroesophageal reflux disease) HTN (hypertension) Surgical History (Updated 04/13/24 @ 16:13 by Jocelyn Hdz RN) Surgical history unknown Family History (Updated 04/13/24 @ 16:13 by Jocelyn Hdz RN) Other Unknown family medical history Social History (Updated 04/13/24 @ 16:14 by Jocelyn Hdz RN) Smoking Status: Never smoker alcohol intake: never current occupational status: retired Travel in the last 8 weeks: None Review of Systems Review of Systems Review of systems:: pertinent systems reviewed and negative unless documented below Review of systems (narrative): Review of Systems: General: No recent weight changes, no fever, no sleep disturbances Respiratory: No cough, no shortness of air, no recurring pulmonary infections Cardiovascular/peripheral vascular: No chest pain, no palpitations, no edema, no shortness of breath Gastrointestinal: No new onset incontinence, normal bowel movements reported Genitourinary: No new onset incontinence Musculoskeletal: Low back pain, bilateral leg pain Psychiatric: [Normal mood/affect] Neurological: [Denies weakness in extremities], [denies balance issues] Meds Home Medications and Allergies Home Medications Medication Instructions Recorded Confirmed Type alprazolam 0.5 mg tablet 0.5 mg PO BID MOOD 04/13/24 04/13/24 History amlodipine 5 mg tablet 5 mg PO DAILY BLOOD PRESSURE 04/13/24 04/13/24 History apixaban 2.5 mg tablet (Eliquis) 2.5 mg PO BID Blood Thinner 04/13/24 04/13/24 History gabapentin 300 mg capsule 300 mg PO TID Pain 04/13/24 04/13/24 History glimepiride 2 mg tablet 2 mg PO DAILY Diabetes 04/13/24 04/13/24 History hydrocodone 10 mg-acetaminophen 1 tab PO TID Pain 04/13/24 04/13/24 History 325 mg tablet hydroxychloroquine 200 mg tablet 200 mg PO BID 04/13/24 04/13/24 History losartan 50 mg tablet 50 mg PO DAILY BLOOD PRESSURE 04/13/24 04/13/24 History omeprazole 40 mg capsule,delayed 40 mg PO DAILY GERD 04/13/24 04/13/24 History release sertraline 100 mg tablet 100 mg PO DAILY MOOD 04/13/24 04/13/24 History sotalol 80 mg tablet 80 mg PO BID BLOOD PRESSURE 04/13/24 04/13/24 History tamsulosin 0.4 mg capsule 0.4 mg PO DAILY 04/13/24 04/13/24 History temazepam 30 mg capsule 30 mg PO DAILY Pain 04/13/24 04/13/24 History New Prescriptions to Start Prescriptions: Allergies Allergy/AdvReac Type Severity Reaction Status Date / Time Penicillins Allergy Unknown Unverified 10/20/17 14:05 Objective Vital signs: Pulse Resp BP Pulse Ox O2 Del Method 66 18 110/46 L 96 Room Air 04/13/24 16:11 04/13/24 16:11 04/13/24 16:11 04/13/24 16:11 04/13/24 16:11 Narrative: Physical Exam: General: Alert and oriented x3, no acute distress, pleasant and cooperative Lungs: Respirations even and unlabored, symmetrical chest expansion Eyes: PERRL Musculoskeletal: Flexion and extension of lumbar [spine] somewhat guarded secondary to pain, [antalgic gait noted] Neurological: Speech clear, no gross sensory deficit Additional findings Additional findings: Lumbar CT 06/15/2020 Findings: No fracture is present. Moderate dextroscoliosis is present. However there is no subluxation in the AP dimension. There is significant lateral subluxation occurring L1-2 and L3-4. T12-L1: No significant disease or canal stenosis L1-L2: Mild annular disc bulge. Moderate facet arthropathy L2-L3: Moderate annular disc bulge covered by osteophytes. Mild central canal stenosis. Moderate facet arthropathy, moderate right neuroforaminal narrowing L3-L4: Moderate annular disc bulge and facet arthropathy. Moderate canal stenosis. Moderate to severe bilateral neuroforaminal narrowing. Findings have progressed from prior exam. L4-L5: Moderate annular disc bulge. Moderate facet arthropathy. Mild central canal stenosis. Moderate neuroforaminal narrowing Assessment and Plan *Assessment and plan (1) Degenerative disc disease, lumbar: Status: Acute Category: Medical Code(s): M51.36 - Other intervertebral disc degeneration, lumbar region (2) Lumbar radiculopathy: Status: Acute Category: Medical Code(s): M54.16 - Radiculopathy, lumbar region (3) Lumbar facet arthropathy: Status: Acute Category: Medical Code(s): M47.816 - Spondylosis without myelopathy or radiculopathy, lumbar region (4) Lumbar spinal stenosis: Status: Acute Qualifiers: Neurogenic claudication status: with neurogenic claudication Qualified Code(s): M48.062 - Spinal stenosis, lumbar region with neurogenic claudication Category: Medical Code(s): M48.061 - Spinal stenosis, lumbar region without neurogenic claudication (5) Lumbar spondylosis: Status: Acute Category: Medical Code(s): M47.816 - Spondylosis without myelopathy or radiculopathy, lumbar region Plan Patient is experiencing significant pain throughout her low back and legs with limited range of motion. I have discussed with the patient that she may benefit from a lumbar epidural steroid injection. Risk and benefits were discussed with patient and she would like to proceed forward with this plan of care. Patient is requesting that only Dr. To does these injections. I have counseled her that we will plan on sending her to the [place] location where he is there more frequently. Patient is agreeable to this plan of care. Patient is on Eliquis and I have counseled her that we will reach out to Dr. Mcclelland's office and confirm she can stop this medication prior to this injection. Patient acknowledges understanding. I have also counseled the patient if we do need to switch her over to the [place] location that we can do that as well. Patient is agreeable to this option. Patient will be scheduled for an LESI L4-L5 under fluoroscopy in the [facility] location. I will also order the patient a compounded cream. Patient has been instructed to contact the clinic with any concerns before the next appointment. Dr. To has reviewed this note and agrees with this plan of care. This note was dictated using voice recognition software and make contain errors or omissions.
== END 2024-04-13 23:59 | disposition home or self-care (01) ==
PROVIDERS: PCP Family Medicine; Visit Provider Nurse Practitioner Family
DX: M48.062 Spinal stenosis, lumbar region with neurogenic claudication; M51.16 Intervertebral disc disorders with radiculopathy, lumbar region; M47.26 Other spondylosis with radiculopathy, lumbar region
CPT/HCPCS: 99202; G0463